=== PATIENT | male | born 1970 | race Caucasian/White ===

== ENCOUNTER 2018-02-14 04:45 | Emergency (ER) | payer SELFPAY ==
[~2018-02-14] VITALS: Ht 177.8 cm; Wt 77.1 kg
--- NOTE | 2018-02-14 05:45 | NUR ---
Patient discharged to home in stable conditon. Patient reported being free of pain prior to discharge. Written and verbal after care instructions given. Patient verbalizes understanding of instructions. Patient able to ambulate unassisted with steady gait. Patient left with all personal belongings.
[2018-02-14 05:54] VITALS: BP 130/86
== END 2018-02-14 05:45 | disposition home or self-care (01) ==
LOC: ER 04:46
DX: L30.9 Dermatitis, unspecified (principal)
CPT/HCPCS: 99281; A4663